=== PATIENT | female | born 1995 | race Caucasian/White ===

== ENCOUNTER 2023-01-08 15:36 | Emergency (ER) | payer OTHER ==
[~2023-01-08] VITALS: Ht 160 cm; Wt 54.4 kg
[2023-01-08] MEDS ORDERED: ANTICONCEPTIVAS (16:03)
[2023-01-08] MEDS ORDERED: OXYTROL FOR WO1 EACH TD (16:03)
== END 2023-01-08 17:42 | disposition home or self-care (01) ==
LOC: ER 15:37
DX: L02.91 Cutaneous abscess, unspecified (principal)